=== PATIENT | male | born 1985 | race Caucasian/White ===

== ENCOUNTER 2016-12-29 05:57 | Emergency (ER) | payer OTHER | END 2016-12-29 08:30 | disposition left against medical advice (07) | LOC: ER1 05:57 | DX: Z53.21 Procedure and treatment not carried out due to patient leaving prior to being seen by health care provider (principal) ==

== ENCOUNTER 2021-12-23 17:49 | Emergency (ER) | payer OTHER ==
[~2021-12-23 17:49] MED LIST: ZOFRAN4 MG PO
== END 2021-12-23 19:30 | disposition left against medical advice (07) ==
LOC: ER1 17:49
DX: Z53.21 Procedure and treatment not carried out due to patient leaving prior to being seen by health care provider (principal)